=== PATIENT | female | born 1995 | race Caucasian/White ===

== ENCOUNTER 2017-08-02 22:42 | Emergency (ER) | payer OTHER ==
[~2017-08-02] VITALS: Ht 170.2 cm; Wt 80.7 kg
[2017-08-02 23:05] VITALS: Ht 170.2 cm; Wt 80.7 kg
[2017-08-03 00:01] LABS: microscopic required? YES; urine erythrocyte NEGATIVE (NEGATIVE)
[2017-08-03 01:39] VITALS: BP 121/77
== END 2017-08-03 01:39 | disposition home or self-care (01) ==
LOC: ED 22:42
PROVIDERS: Emergency Medicine
DX: N10 Acute pyelonephritis (principal); Z86.79 Personal history of other diseases of the circulatory system

== ENCOUNTER 2017-10-31 03:02 | Emergency (ER) | payer OTHER ==
[~2017-10-31] VITALS: Ht 170.2 cm; Wt 82.5 kg
[2017-10-31 03:10] VITALS: Ht 170.2 cm; Wt 82.5 kg
[2017-10-31 04:46] LABS: BASOPHIL % 0.1 % (0-2); PLATELET COUNT 327 x10^3mcL (130-400); RED CELL DISTRIBUTION WIDTH 13.8 % (11.5-14.5)
[2017-10-31 04:53] LABS: CALCIUM 8.7 mg/dL (8.5-10.1); CARBON DIOXIDE 26.1 mmol/L (21-32); CHLORIDE SERUM 103 mmol/L (98-107); CREATININE SERUM 0.8 mg/dL (0.6-1.0); GFR1 > 60 mL/min; GLUCOSE SERUM 108 mg/dL (74-106); POTASSIUM SERUM 4.6 mmol/L (3.5-5.1); SODIUM SERUM 135 mmol/L (136-145)
[2017-10-31 05:00] LABS: ALBUMIN 3.4 g/dL (3.4-5.0); ALKALINE PHOSPHATASE 70 U/L (46-116); ALT/SGPT 13 U/L (14-59); AST/SGOT 4 U/L (15-37); BILIRUBIN TOTAL 0.33 mg/dL (0.20-1.00); LIPASE 234 IU/L (73-393); TOTAL PROTEIN, SERUM 7.1 g/dL (6.4-8.2)
[2017-10-31 05:57] VITALS: BP 110/72
== END 2017-10-31 05:57 | disposition home or self-care (01) ==
LOC: ED 03:02
PROVIDERS: Emergency Medicine
DX: S46.812A Strain of other muscles, fascia and tendons at shoulder and upper arm level, left arm, initial encounter (principal); R10.9 Unspecified abdominal pain; X58.XXXA Exposure to other specified factors, initial encounter; Y93.89 Activity, other specified; Y92.89 Other specified places as the place of occurrence of the external cause; Y99.8 Other external cause status
CPT/HCPCS: J1885; Q0092; Q0162